=== PATIENT | female | born 1985 | race Caucasian/White ===

== ENCOUNTER 2021-09-22 18:54 | Emergency (ER) | payer OTHER, SELFPAY ==
--- NOTE | 2021-09-22 | DI.US.S_ITS ---
PROCEDURE: US ABDOMEN LIMITED INDICATIONS: RULE OUT APPENDIX; RIGHT LOWER QUADRANT PAIN TECHNIQUE: Real-time focused scanning was performed of the abdomen with attention to the appendix, with image documentation. COMPARISON: None. FINDINGS: Appendix visualization: Not visualized Associated findings: Nearby free fluid: Small amount hypoechogenicity measuring approximately 8 x 19 mm is present along superior aspect of the uterus adjacent to the right ovary. Lymphadenopathy: None Tenderness on exam: Positive IMPRESSION: Pending is not visualized. Small focus of what appears to be free fluid in the right lower quadrant of indeterminate etiology. If concern persists for appendicitis, CT is recommended. Dictated by: Melissa Spicer M.D. on 09/22/2021 at 20:14 Approved by: Melissa Spicer M.D. on 09/22/2021 at 20:15
[2021-09-22 18:57] VITALS: BP 132/74; PULSE 85; RESP 16; TEMP 36.5; O2SAT 99
[2021-09-22 19:43] LABS: Add Manual Diff / Slide Review NO; Basophils Absolute Auto 0 /uL (0-100); Basophils Percent Auto 0.2 % (0-2); Eosinophils Absolute Auto 100 /uL (0-450); Eosinophils Percent Auto 0.7 % (2-4); Hematocrit 40.7 % (36-46); Hemoglobin 14.1 g/dL (12.0-16.0); Lymphocytes Absolute Auto 1500 /uL (1100-4500); Mean Corpuscular HGB Conc 34.7 % (30-36); Mean Corpuscular Volume 83.5 fL (80-100); Monocytes Absolute Auto 800 /uL (0-900); Monocytes Percent Auto 7.4 % (3-14); Neutrophils Absolute Auto 8400 /uL (1500-7000); Neutrophils Percent Auto 77.7 % (50-75); Platelet Count 173 X10^3/uL (150-400); Red Blood Cell Count 4.88 X10^6/uL (4.0-5.2); Red Cell Distribution Width 13.6 % (11.6-14.8); White Blood Cell Count 10.9 X10^3/uL (4.5-11.0)
[2021-09-22 19:44] LABS: Alanine Aminotransferase 23 IU/L (<35); Albumin 4.6 g/dL (3.5-5.0); Albumin Globulin Ratio 1.6 (1.0-2.8); Alkaline Phosphatase 64 U/L (38-126); Aspartate Aminotransferase 26 IU/L (14-36); BUN Creatinine Ratio 22.4 (6-22); Bilirubin Total 0.5 mg/dL (0.2-1.3); Blood Urea Nitrogen 17 mg/dL (7-17); Calcium 9.1 mg/dL (8.4-10.2); Carbon Dioxide 28 mmol/L (22-32); Chloride 104 mmol/L (98-107); Estimated Glomerular Filt Rate > 60 mL/min (>60); Globulin 2.9 g/dL (1.7-4.1); Glucose 102 mg/dL (70-100); HEMOLYSIS < 15 (0-50); Lipase 113 U/L (23-300); Potassium 3.9 mmol/L (3.4-5.1); Sodium 139 mmol/L (137-145); Total Protein 7.5 g/dL (6.3-8.2)
--- NOTE | 2021-09-22 22:28 | ED_ITS ---
HPI - Abdominal Pain General Chief Complaint: Abdominal Pain Stated Complaint: Right lower pain Time Seen by Provider: 09/22/21 22:20 Source: patient Mode of arrival: Ambulatory History of Present Illness HPI narrative: Patient brought here from walk-in clinic for concerns of appendicitis. Ongoing 3 days of right lower quadrant pain. No dysuria or urinary complaints. LMP was September 07. Denies . However test was not done. No fever chills. No vaginal bleeding or discharge. No back pain. Reproducible right lower quadrant tenderness/pain Related Data Home Medications Medication Instructions Recorded Confirmed No Known Home Medications 09/22/21 09/22/21 Allergies Allergy/AdvReac Type Severity Reaction Status Date / Time tramadol Allergy Intermediate ITCHING Verified 09/22/21 18:36 Review of Systems Review of Systems Narrative: GENERAL: Denies chills, fatigue, malaise, fever, sweats. HEENT: Denies sinus pain, ear pain, sore throat RESPIRATORY: Denies dyspnea, cough CARDIOVASCULAR: Denies chest pain, palpitations GASTROINTESTINAL: Denies nausea, vomiting, positive for abdominal pain : Denies dysuria, frequency, hematuria MUSCULOSKELETAL: denies muscle or bony pain SKIN: Denies rash, skin lesions NEUROLOGIC: Denies weakness, numbness ROS Unobtainable: All systems reviewed & are unremarkable except as noted in HPI and below Patient History Social History Smoking Status: Former smoker Smoking Status: Former smoker Exam Narrative Exam Narrative: GENERAL: in no distress, not toxic not dyspneic HEAD: Normocephalic. EYES: Pupils equal round No scleral icterus. ENT: Mucous membranes moist. NECK: Trachea midline. CARDIOVASCULAR: Regular rate and rhythm without murmurs RESPIRATORY: Clear to auscultation. Breath sounds equal bilaterally. No wheezes, rales, or rhonchi. GASTROINTESTINAL: Abdomen soft, reproducible right lower quadrant tenderness. No peritoneal signs. Bowel sounds are present. No CVA tenderness EXTREMITIES: No gross deformities. BACK: No flank tenderness. NEURO: AOx4. SKIN: Warm and dry PSYCH: Not anxious, is cooperative Initial Vital Signs Initial Vital Signs: Vital Signs Temperature 97.7 F 09/22/21 18:57 Pulse Rate 85 09/22/21 18:57 Respiratory Rate 16 09/22/21 18:57 Blood Pressure 132/74 09/22/21 18:57 Pulse Oximetry 99 09/22/21 18:57 Oxygen Delivery Method 09/22/21 18:57 Course Course Course Narrative: No new issues during course of stay Orders Ordered: ED Orders 09/22/21 22:28 CT abdomen pelvis w con Stat 09/23/21 00:05 US pelvic complete Stat Discontinued Medications Sodium Chloride (Normal Saline 0.9%) 1,000 mls @ 1,000 mls/hr IV BOLUS ONE Stop: 09/22/21 23:26 Last Infusion: 09/23/21 00:57 Dose: 0 mls/hr Documented By: Admin: 09/22/21 23:39 Dose: 1,000 mls/hr Documented By: NR Ibuprofen (Ibuprofen 400 Mg Tablet) 400 mg PO NOW ONE Stop: 09/23/21 01:32 Last Admin: 09/23/21 01:35 Dose: Not Given Documented By: ALIRIO Ibuprofen (Ibuprofen 400 Mg Tablet) 600 mg PO NOW ONE Stop: 09/23/21 01:36 Ibuprofen (Ibuprofen 400 Mg Tablet) 800 mg PO NOW ONE Stop: 09/23/21 01:44 Last Admin: 09/23/21 01:47 Dose: 800 mg Documented By: ADRIANO Reevaluation(s) Reevaluation #1: Reviewed with patient results and pelvic ultrasound preliminary report shows hemorrhagic ovarian cysts but no torsion. Patient does not want await for final results of the ultrasound. She desires discharge home. Patient was sleeping prior to discussion. Return precautions reviewed with her. Time: 01:25 Vital Signs Vital signs: Vital Signs - 8 hr 09/22/21 18:57 Temperature 97.7 F Pulse Rate 85 Respiratory Rate 16 Blood Pressure 132/74 Pulse Oximetry 99 Oxygen Delivery Method Room Air MDM - Abdominal Pain Differential Diagnosis Differential diagnosis: Likely abdominal pain, acute appendicitis, calculus of kidney, endometriosis and other (Ovarian cyst) Lab Data Result diagrams: 09/22/21 19:12 09/22/21 19:12 Labs: Lab Results 09/22/21 09/22/21 Range/Units 19:12 19:12 WBC 10.9 (4.5-11.0) X10^3/uL RBC 4.88 (4.0-5.2) X10^6/uL Hgb 14.1 (12.0-16.0) g/dL Hct 40.7 (36-46) % MCV 83.5 (80-100) fL MCH 29.0 (26-34) PG MCHC 34.7 (30-36) % RDW 13.6 (11.6-14.8) % Plt Count 173 (150-400) X10^3/uL Neut % (Auto) 77.7 H (50-75) % Lymph % (Auto) 14.0 L (25-40) % Banks % (Auto) 7.4 (3-14) % Eos % (Auto) 0.7 L (2-4) % Baso % (Auto) 0.2 (0-2) % Neut # (Auto) 8400 H (3858-8894) /uL Lymph # (Auto) 1500 (4704-5325) /uL Banks # (Auto) 800 (0-900) /uL Eos # (Auto) 100 (0-450) /uL Baso # (Auto) 0 (0-100) /uL Sodium 139 (137-145) mmol/L Potassium 3.9 (3.4-5.1) mmol/L Chloride 104 (98-107) mmol/L Carbon Dioxide 28 (22-32) mmol/L BUN 17 (7-17) mg/dL Creatinine 0.76 (0.52-1.04) mg/dL Estimated GFR > 60 (>60) mL/min BUN/Creatinine Ratio 22.4 H (6-22) Glucose 102 H (70-100) mg/dL Calcium 9.1 (8.4-10.2) mg/dL Total Bilirubin 0.5 (0.2-1.3) mg/dL AST 26 (14-36) IU/L ALT 23 (<35) IU/L Alkaline Phosphatase 64 (38-126) U/L Total Protein 7.5 (6.3-8.2) g/dL Albumin 4.6 (3.5-5.0) g/dL Globulin 2.9 (1.7-4.1) g/dL Albumin/Globulin Ratio 1.6 (1.0-2.8) Lipase 113 (23-300) U/L Point of care testing: Point of Care Testing Test Results Negative Imaging Data US - abdomen: Radiologist's Impression: [address] [address] Ultrasound Report Signed Patient: Louise Nickerson MR#: [id number] : 1985 Acct:[id number] Age/Sex: 35 / F Date of Service: 09/22/21 Loc: ED Accession Number: [id number] ?? Procedure: US abdomen limited Ordering Provider: Yumiko Adkins PROCEDURE:? US ABDOMEN LIMITED ? INDICATIONS:? RULE OUT APPENDIX; RIGHT LOWER QUADRANT PAIN ? TECHNIQUE:? Real-time focused scanning was performed of the abdomen with attention to the appendix, with image documentation.? ? COMPARISON:? None. ? FINDINGS:? Appendix visualization:? Not visualized ? ? Associated findings:? Nearby free fluid:? Small amount hypoechogenicity measuring approximately 8 x 19 mm is present along superior aspect of the uterus adjacent to the right ovary. Lymphadenopathy:? None Tenderness on exam:? Positive ? IMPRESSION:? ? Pending is not visualized. ? Small focus of what appears to be free fluid in the right lower quadrant of indeterminate etiology.? If concern persists for appendicitis, CT is recommended. ? ? Dictated by: Melissa Spicer M.D. on 09/22/2021 at 20:14 ? ? Approved by: Melissa Spicer M.D. on 09/22/2021 at 20:15 ? CT scan - abdomen/pelvis: Radiologist's Impression: [place] [address] CT Scan Report Signed Patient: Louise Nickerson MR#: [id number] : 1985 Acct:[id number] Age/Sex: 35 / F Date of Service: 09/22/21 Loc: ED Accession Number: [id number] ?? Procedure: CT abdomen pelvis w con Ordering Provider: Sharath Del Rosario MD PROCEDURE:? CT ABDOMEN PELVIS W CON ? INDICATIONS:? right lower quadrant pain ? TECHNIQUE:? After the administration of IV contrast, axial sections were acquired from the lung bases to the pubic symphysis.? Coronal and sagittal reformats were performed.? For radiation dose reduction, the following was used:? automated exposure control, adjustment of mA and/or kV according to patient size. ? COMPARISON:? None. ? FINDINGS:? Image quality:? Excellent.? ? Lung bases:? There is minimal dependent atelectasis.? ? Heart:? Heart is normal in size.? There is a small hiatal hernia. ? ? ABDOMEN: Liver:? No mass lesion. Gallbladder:? Within normal limits without calcified gallstones.? ? Biliary ducts:? No biliary ductal dilatation.? ? Pancreas:? Unremarkable.? ? Spleen:? Normal in size.? ? Adrenal Glands:? No adrenal nodules.? ? Kidneys and Ureters:? No hydronephrosis.? There is a small nonobstructing stone within the right kidney measuring up to 0.2 cm. ? ? Stomach and Bowel:? Stomach, small bowel loops, and colon are normal in caliber and wall thickness.? The appendix is normal in appearance.? Peritoneum:? No abnormal intraperitoneal fluid.? No free air.? ? Ventral Wall: ? No hernia.? Abdominal Nodes:? No retroperitoneal or mesenteric adenopathy by size criteria.? Vessels:? Aorta and inferior vena cava are normal in size.? ? PELVIS: Pelvic Organs:? There is a heterogeneous left ovarian cyst measuring up to 4.8 cm.? ? Bladder:? Unremarkable.? ? Pelvic Nodes: No enlarged lymph nodes.? Miscellaneous: No inguinal hernias are seen. ? ? ? Bones:? Visualized osseous structures demonstrate no suspicious focal lesions. ? ? IMPRESSION:? ? 1. No evidence of appendicitis. ? 2. Right nephrolithiasis without evidence of obstructive uropathy. ? 3. Heterogeneous left ovarian cyst suggestive of a hemorrhagic cyst.? Further ev aluation may be obtained with a pelvic ultrasound if clinically indicated.? ? ? Dictated by: Joesph Orosco M.D. on 09/22/2021 at 23:40 ? ? Approved by: Joesph Orosco M.D. on 09/22/2021 at 23:43 ? US - ANALYSIS OR RESEARCH SAFETY INSPECTOR: Radiologist's Impression: [address] [address] Ultrasound Report Signed Patient: Louise Nickerson MR#: [id number] : 1985 Acct:[id number] Age/Sex: 35 / F Date of Service: 09/23/21 Loc: ED Accession Number: [id number] ?? Procedure: US pelvic complete Ordering Provider: Sharath Del Rosario MD PROCEDURE:? US PELVIC COMPLETE ? INDICATIONS:? PELVIC PAIN LEFT ADNEXAL MASS RULE OUT TORSION ? TECHNIQUE:? Real-time scanning was performed of the pelvic organs, with image do cumentation.? Additional endovaginal scanning was necessary due to incomplete visualization of the adnexal and endometrial structures by transabdominal scanning.? ? COMPARISON:? [facility], CT, CT ABDOMEN PELVIS W CON, 09/22/2021, 22:55. ? FINDINGS:? ?? Uterus:? Uterus is anteverted and measures 9.6 x 7.2 x 5.0 cm.? The endometrium measures up to 1.3 cm in thickness.? ? Ovaries:? The right ovary measures 3.5 x 2.5 x 2.7 cm and the left ovary measures 6.1 x 4.6 x 2.8 cm. The ovaries have a normal sonographic appearance.? There is a hypoechoic cystic structure in the left ovary with internal echoes measuring up to 4.9 x 3.3 x 2.7 cm.? There is also a thick-walled hypoechoic cystic structure in the left ovary measuring up to 3.7 x 2.0 x 2.1 cm.? There is patent arterial and venous flow demonstrated in the ovaries. ? Other:? No pathologic free abdominal or pelvic fluid. ? ? IMPRESSION:? ? 1. No definite evidence of ovarian torsion.? Patent arterial and venous flow demonstrated in the left ovary. ? 2. Thick-walled left ovarian cyst with internal echoes is nonspecific but likely represents a hemorrhagic cyst or other physiologic cyst. ? 3. Additional smaller thick-walled cyst in the left ovary measuring up to 3.7 cm also likely represents a physiologic cyst such as a corpus luteal cyst. ? ? We strive to produce accurate, complete, and clear reports of imaging services. To assist us in improving patient care, this report was composed using standard report templates and voice recognition software. Therefore, it may contain abnormal punctuation, insertions and/or omissions. Occasional wrong-word or sound-alike substitutions may occur. Though we review the report and make efforts to correct it, we do recommend that the report be read carefully in proper context to recognize any text inaccuracies. ? ? Dictated by: Joesph Orosco M.D. on 09/23/2021 at 1:45 ? ? Approved by: Joesph Orosco M.D. on 09/23/2021 at 1:50 ? MDM Narrative Medical decision making narrative: Appropriate for discharge home. Patient not toxic. Exam and laboratory studies are reassuring. At this time no pelvic exam as no complaints of vaginal discharge or bleeding. Return precautions reviewed with her. Pain controlled. She desires discharge home. Discharge Plan Departure Patient Disposition: Home Clinical Impression: Pelvic pain Instructions: DI for Ovarian Cyst Activity Restrictions/Additional Instructions: Return if worse if any questions or concerns. See family doctor within a week for recheck. Return immediately if increased pain in the right side of your abdomen or any fever chills. May need repeat ultrasound to re-evaluate your ovarian cyst on the left, scheduled this with her family doctor. May continue ibuprofen or Tylenol for pain. Prescriptions: No Action No Known Home Medications Visit Report Forms: Patient Portal/API
--- NOTE | 2021-09-22 22:28 | DI.CT.S_ITS ---
PROCEDURE: CT ABDOMEN PELVIS W CON INDICATIONS: right lower quadrant pain TECHNIQUE: After the administration of IV contrast, axial sections were acquired from the lung bases to the pubic symphysis. Coronal and sagittal reformats were performed. For radiation dose reduction, the following was used: automated exposure control, adjustment of mA and/or kV according to patient size. COMPARISON: None. FINDINGS: Image quality: Excellent. Lung bases: There is minimal dependent atelectasis. Heart: Heart is normal in size. There is a small hiatal hernia. ABDOMEN: Liver: No mass lesion. Gallbladder: Within normal limits without calcified gallstones. Biliary ducts: No biliary ductal dilatation. Pancreas: Unremarkable. Spleen: Normal in size. Adrenal Glands: No adrenal nodules. Kidneys and Ureters: No hydronephrosis. There is a small nonobstructing stone within the right kidney measuring up to 0.2 cm. Stomach and Bowel: Stomach, small bowel loops, and colon are normal in caliber and wall thickness. The appendix is normal in appearance. Peritoneum: No abnormal intraperitoneal fluid. No free air. Ventral Wall: No hernia. Abdominal Nodes: No retroperitoneal or mesenteric adenopathy by size criteria. Vessels: Aorta and inferior vena cava are normal in size. PELVIS: Pelvic Organs: There is a heterogeneous left ovarian cyst measuring up to 4.8 cm. Bladder: Unremarkable. Pelvic Nodes: No enlarged lymph nodes. Miscellaneous: No inguinal hernias are seen. Bones: Visualized osseous structures demonstrate no suspicious focal lesions. IMPRESSION: 1. No evidence of appendicitis. 2. Right nephrolithiasis without evidence of obstructive uropathy. 3. Heterogeneous left ovarian cyst suggestive of a hemorrhagic cyst. Further evaluation may be obtained with a pelvic ultrasound if clinically indicated. Dictated by: Joesph Orosco M.D. on 09/22/2021 at 23:40 Approved by: Joesph Orosco M.D. on 09/22/2021 at 23:43
[2021-09-22] MEDS: SODIUM CHLORIDE 0.9% 1,000 ML 1000 ML IV (23:39)
--- NOTE | 2021-09-23 00:05 | DI.US.S_ITS ---
PROCEDURE: US PELVIC COMPLETE INDICATIONS: PELVIC PAIN LEFT ADNEXAL MASS RULE OUT TORSION TECHNIQUE: Real-time scanning was performed of the pelvic organs, with image documentation. Additional endovaginal scanning was necessary due to incomplete visualization of the adnexal and endometrial structures by transabdominal scanning. COMPARISON: [facility], CT, CT ABDOMEN PELVIS W CON, 09/22/2021, 22:55. FINDINGS: Uterus: Uterus is anteverted and measures 9.6 x 7.2 x 5.0 cm. The endometrium measures up to 1.3 cm in thickness. Ovaries: The right ovary measures 3.5 x 2.5 x 2.7 cm and the left ovary measures 6.1 x 4.6 x 2.8 cm. The ovaries have a normal sonographic appearance. There is a hypoechoic cystic structure in the left ovary with internal echoes measuring up to 4.9 x 3.3 x 2.7 cm. There is also a thick-walled hypoechoic cystic structure in the left ovary measuring up to 3.7 x 2.0 x 2.1 cm. There is patent arterial and venous flow demonstrated in the ovaries. Other: No pathologic free abdominal or pelvic fluid. IMPRESSION: 1. No definite evidence of ovarian torsion. Patent arterial and venous flow demonstrated in the left ovary. 2. Thick-walled left ovarian cyst with internal echoes is nonspecific but likely represents a hemorrhagic cyst or other physiologic cyst. 3. Additional smaller thick-walled cyst in the left ovary measuring up to 3.7 cm also likely represents a physiologic cyst such as a corpus luteal cyst. We strive to produce accurate, complete, and clear reports of imaging services. To assist us in improving patient care, this report was composed using standard report templates and voice recognition software. Therefore, it may contain abnormal punctuation, insertions and/or omissions. Occasional wrong-word or sound-alike substitutions may occur. Though we review the report and make efforts to correct it, we do recommend that the report be read carefully in proper context to recognize any text inaccuracies. Dictated by: Joesph Orosco M.D. on 09/23/2021 at 1:45 Approved by: Joesph Orosco M.D. on 09/23/2021 at 1:50
[2021-09-23] MEDS: IBUPROFEN 400 MG TABLET 800 MG PO (01:47)
== END 2021-09-23 01:52 | disposition home or self-care (01) ==
PROVIDERS: Nurse Practitioner Critical Care Medicine; Emergency Provider Emergency Medicine
DX: R10.2 Pelvic and perineal pain (principal)
CPT/HCPCS: 36415; 74177; 76705; 76830; 76856; 80053; 81025; 83690; 85025; 96360; 99284; Q9967

== ENCOUNTER → 2021-10-13 14:11 | Outpatient (CLI) | payer OTHER, SELFPAY ==
[2021-10-13 14:49] LABS: Add Manual Diff / Slide Review NO; Basophils Absolute Auto 100 /uL (0-100); Basophils Percent Auto 0.8 % (0-2); Eosinophils Absolute Auto 100 /uL (0-450); Eosinophils Percent Auto 0.9 % (2-4); Hematocrit 40.4 % (36-46); Lymphocytes Absolute Auto 1500 /uL (1100-4500); Mean Corpuscular HGB Conc 34.6 % (30-36); Mean Corpuscular Hemoglobin 29.3 PG (26-34); Mean Corpuscular Volume 84.8 fL (80-100); Monocytes Absolute Auto 400 /uL (0-900); Monocytes Percent Auto 5.7 % (3-14); Neutrophils Absolute Auto 4500 /uL (1500-7000); Neutrophils Percent Auto 69.6 % (50-75); Platelet Count 178 X10^3/uL (150-400); Red Blood Cell Count 4.76 X10^6/uL (4.0-5.2); Red Cell Distribution Width 13.3 % (11.6-14.8); White Blood Cell Count 6.4 X10^3/uL (4.5-11.0)
[2021-10-13 15:24] LABS: Follicle Stimulating Hormone 6.43 mIU/mL; Luteinizing Hormone 11.8 mIU/mL
[2021-10-13 15:34] LABS: Erythrocyte Sedimentation Rate 9 MM/HR (0-20)
[2021-10-13 15:38] LABS: TSH w/ Reflex to FT4 1.23 uIU/mL (0.47-4.68)
[2021-10-14 04:02] LABS: Alanine Aminotransferase 20 IU/L (<35); Albumin 4.5 g/dL (3.5-5.0); Albumin Globulin Ratio 1.6 (1.0-2.8); Alkaline Phosphatase 66 U/L (38-126); Aspartate Aminotransferase 28 IU/L (14-36); BUN Creatinine Ratio 16.3 (6-22); Bilirubin Total 0.5 mg/dL (0.2-1.3); Blood Urea Nitrogen 15 mg/dL (7-17); Calcium 8.9 mg/dL (8.4-10.2); Carbon Dioxide 30 mmol/L (22-32); Chloride 105 mmol/L (98-107); Creatine Kinase 56 U/L (30-135); Estimated Glomerular Filt Rate > 60 mL/min (>60); Globulin 2.8 g/dL (1.7-4.1); Glucose 86 mg/dL (70-100); HEMOLYSIS < 15 (0-50); Sodium 141 mmol/L (137-145); Total Protein 7.3 g/dL (6.3-8.2)
[2021-10-14 04:15] LABS: Rheumatoid Factor < 8.6 IU/mL (<12.0)
[2021-10-14 04:39] LABS: Testosterone 53.6 ng/dL (5.71-77.0)
[2021-10-15 13:10] LABS: ANA Screen, IFA Negative (.)
== END ==
PROVIDERS: PCP Pediatrics; Referring Provider Pediatrics; Visit Provider Pediatrics
DX: N83.202 Unspecified ovarian cyst, left side (principal); D64.9 Anemia, unspecified; M54.9 Dorsalgia, unspecified; G89.29 Other chronic pain; F43.10 Post-traumatic stress disorder, unspecified; F41.9 Anxiety disorder, unspecified
CPT/HCPCS: 36415; 80053; 82550; 83001; 83002; 84403; 84443; 85025; 85651; 86038; 86430

== ENCOUNTER → 2021-10-28 11:15 | Outpatient (CLI) | payer OTHER, SELFPAY ==
--- NOTE | 2021-10-28 11:17 | DI.US.S_ITS ---
PROCEDURE: US PELVIC COMPLETE INDICATIONS: re-check left ovarian cysts TECHNIQUE: Real-time scanning was performed of the pelvic organs, with image documentation. Additional endovaginal scanning was necessary due to incomplete visualization of the adnexal and endometrial structures by transabdominal scanning. COMPARISON: [facility], US, US PELVIC COMPLETE, 09/23/2021, 1:29. FINDINGS: Uterus: Uterus is anteverted and mildly enlarged in size at 11.3 x 4.9 x 5.9 cm. The myometrium is heterogeneous. The endometrium measures 11 mm combined thickness. Ovaries: The right ovary measures 6.3 x 4.74.5 cm. The right ovary demonstrates a cyst measuring up to 4.4 cm. Along the margin of the cyst, there is a solid-appearing nodule that measures up to 2.4 cm. The left ovary measures 3.7 x 1.8 x 3.1 cm. The left ovary demonstrates a complex cyst that measures up to 1.7 cm. No adnexal masses are seen. Other: No pathologic free abdominal or pelvic fluid. IMPRESSION: A complex cyst is seen within the right ovary, including a solid nodule along its margin that measures up to 2.4 cm. If it would be clinically appropriate, a followup pelvic ultrasound could be considered in 6 weeks to assure resolution/ improvement. - If it would be clinically appropriate, a followup pelvic ultrasound could be considered in 6 weeks to assure resolution/ improvement. There is a complex cyst seen within the left ovary that now measures 1.7 cm. This is likely related to a resolving cyst. We strive to produce accurate, complete, and clear reports of imaging services. To assist us in improving patient care, this report was composed using standard report templates and voice recognition software. Therefore, it may contain abnormal punctuation, insertions and/or omissions. Occasional wrong-word or sound-alike substitutions may occur. Though we review the report and make efforts to correct it, we do recommend that the report be read carefully in proper context to recognize any text inaccuracies. Dictated by: Evan Winter M.D. on 10/28/2021 at 16:34 Approved by: Evan Winter M.D. on 10/28/2021 at 16:38
== END ==
PROVIDERS: PCP Pediatrics; Referring Provider Obstetrics & Gynecology; Visit Provider Obstetrics & Gynecology
DX: N83.291 Other ovarian cyst, right side (principal); N83.292 Other ovarian cyst, left side; R00.2 Palpitations
CPT/HCPCS: 76830; 76856; 93242

== ENCOUNTER → 2021-10-28 13:57 | Outpatient (CLI) | payer OTHER, SELFPAY ==
--- NOTE | 2021-11-16 16:58 | PM.CARDMON.1 ---
Real Time Analyst Report Referral & Results Date Patient Seen: 10/28/21 Requesting provider: Jay Harding Indication: Palpitations Duration of monitoring (days): 7 Diary information: There were 22 patient triggered events and 9 patient diary entries Patient triggered events were variably associated with (within 45 seconds) sinus rhythm, PACs, PVCs and ventricular bigeminy Patient diary events were associated with (within 45 seconds) sinus rhythm, PVCs and ventricular bigeminy Data: Minimum heart rate identified was 40 beats per minute at 02:10 on 10/30/2021 Maximum heart rate was 183 beats per minute at 13:34 on 10/30/2021 Less than 1% of identified beats were ventricular or supraventricular ectopic in origin, which would classify them as rare. 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 Based on patient events alone it seems more likely than not that patient reported symptoms are due to PVCs although could also be secondary to simple PACs Clinical correlation suggested
== END ==
PROVIDERS: PCP Pediatrics; Referring Provider Pediatrics; Visit Provider Pediatrics
DX: R00.2 Palpitations (principal)
CPT/HCPCS: 93242; 93244

== ENCOUNTER → 2021-11-29 08:51 | Outpatient (CLI) | payer OTHER, SELFPAY ==
--- NOTE | 2021-11-29 09:28 | DI.US.S_ITS ---
PROCEDURE: US PELVIC COMPLETE INDICATIONS: re-check right ovarian cyst TECHNIQUE: Real-time scanning was performed of the pelvic organs, with image documentation. Additional endovaginal scanning was necessary due to incomplete visualization of the adnexal and endometrial structures by transabdominal scanning. COMPARISON: [facility], US, US PELVIC COMPLETE, 10/28/2021, 11:58. FINDINGS: Uterus: Mild arcuate uterine morphology. Uterus is anteverted and normal in size at 9.9 x 4.6 x 5.4 cm. The myometrium is homogeneous. The endometrium measures 11.2 mm combined thickness. Ovaries: Right ovary measures 3.6 x 2.8 x 3.3 cm in the left 2.7 x 1.6 x 2.4 cm. Previously visualized complex right ovarian cyst has resolved. Regressing physiologic cyst involves the right ovary measuring 17 mm. Other: No pathologic free abdominal or pelvic fluid. IMPRESSION: 1. Resolved previously seen complex right ovarian cyst and there is a resolving physiologic cyst not seen associated with the right ovary measuring 17 mm. We strive to produce accurate, complete, and clear reports of imaging services. To assist us in improving patient care, this report was composed using standard report templates and voice recognition software. Therefore, it may contain abnormal punctuation, insertions and/or omissions. Occasional wrong-word or sound-alike substitutions may occur. Though we review the report and make efforts to correct it, we do recommend that the report be read carefully in proper context to recognize any text inaccuracies. Dictated by: Conor GARCIA Interpreted: Davon Garcia MD on 11/29/2021 at 13:06 Transcribed by: HENRRY on 11/29/2021 at 13:10 Approved by: Davon Garcia M.D. on 11/29/2021 at 14:51
== END ==
PROVIDERS: PCP Pediatrics; Referring Provider Obstetrics & Gynecology; Visit Provider Obstetrics & Gynecology
DX: N83.201 Unspecified ovarian cyst, right side (principal)
CPT/HCPCS: 76830; 76856; 93976

== ENCOUNTER → 2023-09-25 06:36 | Outpatient (CLI) | payer OTHER, MEDICAID, SELFPAY ==
--- NOTE | 2023-09-25 06:39 | DI.US.S_ITS ---
PROCEDURE: US PELVIC COMPLETE INDICATIONS: PELVIC PAIN RIGHT TECHNIQUE: Real-time scanning was performed of the pelvic organs, with image documentation. Additional endovaginal scanning was necessary due to incomplete visualization of the adnexal and endometrial structures by transabdominal scanning. COMPARISON: [facility], US, US PELVIC COMPLETE, 11/29/2021, 9:34. FINDINGS: Uterus: Uterus is anteverted and normal in size at 9.6 x 5.0 x 6.0 cm. The myometrium is homogeneous. The endometrium measures 10.0 mm combined thickness. Ovaries: The right ovary measures 2.9 x 3.1 x 2.0 cm, with a calculated ovarian volume of 9.4 cc. The left ovary measures 1.8 x 3.3 x 1.5 cm, with a calculated ovarian volume of 4.5 cc. The ovaries have a normal sonographic appearance. There are likely greater than 12 follicles in the right ovary. Fewer than 12 follicles are visualized in the left ovary. No adnexal masses are seen. Other: No pathologic free abdominal or pelvic fluid. IMPRESSION: 1. Likely greater than 12 ovarian follicles on the right. Findings meet the [place] definition of polycystic ovaries. In the absence of ovulatory dysfunction or clinically/biochemically diagnosed hyperandrogenism, findings are non specific and do not indicate the presence of polycystic ovarian syndrome. 2. Otherwise unremarkable pelvic ultrasound. We strive to produce accurate, complete, and clear reports of imaging services. To assist us in improving patient care, this report was composed using standard report templates and voice recognition software. Therefore, it may contain abnormal punctuation, insertions and/or omissions. Occasional wrong-word or sound-alike substitutions may occur. Though we review the report and make efforts to correct it, we do recommend that the report be read carefully in proper context to recognize any text inaccuracies. Dictated by: Zena Garay M.D. on 09/25/2023 at 10:07 Approved by: Zena Garay M.D. on 09/25/2023 at 10:10
== END ==
PROVIDERS: PCP Physician Assistant; Referring Provider Physician Assistant; Visit Provider Physician Assistant
DX: R10.2 Pelvic and perineal pain (principal)
CPT/HCPCS: 76830; 76856; 93975